=== PATIENT | male | born 1975 | race American Indian/Alaskan Native ===

== ENCOUNTER 2016-12-07 22:44 | Emergency (ER) | payer MEDICAID ==
[2016-12-07 23:00] VITALS: BMI 29.2
[2016-12-07 23:10] VITALS: BP 95/59; PULSE 99; RESP 18; TEMP 98.4; O2SAT 95
--- NOTE | 2016-12-08 00:25 | ED PDOC ---
Arrival/HPI - General Chief Complaint: Finger,Hand,&Wrist Time Seen by Provider: 12/08/16 00:17 Historian: Patient - History of Present Illness Narrative History of Present Illness (Text): 12/08/16 00:25 Nicholas Rojas is a 41 year old male, whose past medical history includes ESRD with hemodialysis and diabetes, who presents to the emergency department complaining of hx. intermittent pain to bilateral hands with swelling. Patient states he is unsure if he is allergic to anything.States he has had similar episodes in the past treated with steroids. The patient denies any chest pain, shortness of breath, back pain, neck pain, headache, dizziness, or any other complaints. Time/Duration: < month (3 weeks) Symptom Onset: Gradual Symptom Course: Intermittent, Other (Chronic) Activities at Onset: Rest, Light Context: Home Past Medical History - Provider Review Nursing Documentation Reviewed: Yes - Infectious Disease Hx of Infectious Diseases: None - Cardiac Hx Cardiac Disorders: No - Pulmonary Hx Respiratory Disorders: No - Neurological Hx Neurological Disorder: No - HEENT Hx HEENT Disorder: No - Renal Hx Dialysis: Yes (3 x weekly) Type of Dialysis Access: R chest permacath Date of Last Dialysis Treatment: 12/05/16 - Endocrine/Metabolic Hx Diabetes Mellitus Type 2: Yes - Hematological/Oncological Hx Blood Transfusions: Yes - Integumentary Hx Dermatological Disorder: Yes - Musculoskeletal/Rheumatological Other/Comment: L BKA - Gastrointestinal Hx Gastrointestinal Disorders: No - Genitourinary/Gynecological Other/Comment: does not make urine anymore - Psychiatric Hx Psychophysiologic Disorder: No Hx Substance Use: No - Surgical History Other/Comment: L LADYA. R chest permacath - Anesthesia Hx Anesthesia: Yes Hx Anesthesia Reactions: No Hx Malignant Hyperthermia: No Family/Social History - Physician Review Nursing Documentation Reviewed: Yes Family/Social History: No Known Family HX Smoking Status: Heavy Smoker > 10 Cigarettes Daily Hx Alcohol Use: Yes Frequency of alcohol use: Socially Hx Substance Use: No Allergies/Home Meds Allergies/Adverse Reactions: Allergies FISH Allergy (Verified 11/23/16 20:32) RASH Home Medications: Home Meds Medication Instructions Recorded Confirmed Calcium Acetate [Phoslo] 667 mg PO TID 02/28/16 11/23/16 Oxycodone HCl/Acetaminophen 1 each PO DAILY PRN 02/28/16 11/18/16 [Percocet 10-325 mg Tablet] Cinacalcet [Sensipar] 1 tab PO DAILY 12/07/16 12/07/16 Clopidogrel [Plavix] 1 tab PO DAILY 12/07/16 12/07/16 Oxycodone HCl/Acetaminophen 1 tab PO QID PRN 12/07/16 12/07/16 [Percocet 10-325 mg Tablet] Sevelamer [Renagel] 4 tab PO TID 12/07/16 12/07/16 Review of Systems - Physician Review All systems were reviewed & negative as marked: Yes - Review of Systems Constitutional: Normal. absent: Fevers Eyes: Normal ENT: Normal Respiratory: Normal. absent: SOB, Cough Cardiovascular: Normal. absent: Chest Pain Gastrointestinal: Normal. absent: Abdominal Pain, Diarrhea, Nausea, Vomiting Genitourinary Male: Normal. absent: Dysuria, Frequency, Hematuria, Urinary Output Changes Musculoskeletal: Other (+bilateral hand pain). absent: Back Pain, Neck Pain Skin: Normal. absent: Rash Neurological: Normal. absent: Headache, Dizziness Endocrine: Normal Hemo/Lymphatic: Normal Psychiatric: Normal Physical Exam Vital Signs Reviewed: Yes Vital Signs Temp Pulse Resp BP Pulse Ox 12/07/16 23:09 98.4 F 99 H 18 95/59 L 95 Temperature: Afebrile Blood Pressure: Normal Pulse: Regular Respiratory Rate: Normal Appearance: Positive for: Well-Appearing, Non-Toxic, Comfortable Pain Distress: None Mental Status: Positive for: Alert and Oriented X 3 - Systems Exam Head: Present: Atraumatic, Normocephalic Pupils: Present: PERRL Extroacular Muscles: Present: EOMI Conjunctiva: Present: Normal Mouth: Present: Moist Mucous Membranes Neck: Present: Normal Range of Motion Respiratory/Chest: Present: Clear to Auscultation, Good Air Exchange. No: Respiratory Distress, Accessory Muscle Use Cardiovascular: Present: Regular Rate and Rhythm, Normal S1, S2. No: Murmurs Upper Extremity: Present: Normal Inspection, Normal ROM, NORMAL PULSES, Neurovascularly Intact, Capillary Refill < 2s, Other (discomfort with bilateral hand flexion/extension). No: Cyanosis, Edema, Erythema, Temperature Abnormalties, Deformity Neurological: Present: GCS=15, CN II-XII Intact, Speech Normal Psychiatric: Present: Alert, Oriented x 3, Normal Insight, Normal Concentration Medical Decision Making ED Course and Treatment: 12/08/16 00:25 Impression: 41 year old male complaining of intermittent bilateral hand pain with possible swelling. Differential Diagnosis included but are not limited to: Plan: -- XR Left Hand -- XR Right Hand -- Benadryl -- Prednisone -- Percocet -- Reassess and disposition Progress Notes: 12/08/16 01:27 Reviewed radiology, XR Left Hand shows no acute process.Soft tissue calcifications XR Right Hand shows no acute process.Soft tissue calcifications - RAD Interpretation Radiology Orders: 12/08/16 00:24 HAND LEFT 3 VIEWS ROUTINE [RAD] Stat HAND RIGHT 3 VIEWS [RAD] Stat - Medication Orders Current Medication Orders: Discontinued Medications Diphenhydramine HCl (Benadryl) 25 mg PO ONCE STA Stop: 12/08/16 00:28 Last Admin: 12/08/16 00:45 Dose: 25 mg Oxycodone/Acetaminophen (Percocet 5/325 Mg Tab) 1 tab PO STAT STA Stop: 12/08/16 00:28 Last Admin: 12/08/16 00:45 Dose: 1 tab Prednisone (Prednisone Tab) 60 mg PO ONCE STA Stop: 12/08/16 00:28 Last Admin: 12/08/16 00:45 Dose: 60 mg - Scribe Statement The provider has reviewed the documentation as recorded by the Sandy Tesfaye Provider Attestation: All medical record entries made by the Sandy were at my direction and personally dictated by me. I have reviewed the chart and agree that the record accurately reflects my personal performance of the history, physical exam, medical decision making, and the department course for this patient. I have also personally directed, reviewed, and agree with the discharge instructions and disposition. Disposition/Present on Arrival - Present on Arrival Any Indicators Present on Arrival: No History of DVT/PE: No History of Uncontrolled Diabetes: No Urinary Catheter: No History of Decub. Ulcer: No History Surgical Site Infection Following: None - Disposition Have Diagnosis and Disposition been Completed?: Yes Diagnosis: Allergic reaction, Arthralgia of both hands Disposition: HOME/ ROUTINE Disposition Time: 01:36 Patient Plan: Discharge Condition: STABLE Additional Instructions: Take meds as prescribed/follow up with your doctor this week Prescriptions: DiphenhydrAMINE [Benadryl] 50 mg PO Q6 PRN #16 cap PRN Reason: Swelling predniSONE [Prednisone] 40 mg PO DAILY #10 tab Tramadol HCl [Ultram] 50 mg PO Q6 PRN #12 tab PRN Reason: Pain, Moderate (4-7) Referrals: Nehemiah Elliott DO [[facility]] - Follow up with primary
[2016-12-08] MEDS ORDERED: Oxycodone/Acetaminophen 5/325 mg Tab PO STA (00:27)
--- NOTE | 2016-12-08 07:49 | RAD ---
PROCEDURE: Left Hand Radiographs. HISTORY: pain COMPARISON: None. FINDINGS: BONES: No evidence of acute pathology in the osseous fracture. JOINTS: Mild arthritic changes. SOFT TISSUES: Foci of soft tissue densities are seen of uncertain etiology may represent tendon or soft tissue calcification. OTHER FINDINGS: None. IMPRESSION: Foci of soft tissue density seen of uncertain etiology.
--- NOTE | 2016-12-08 07:51 | RAD ---
PROCEDURE: Right Hand Radiographs. HISTORY: pain COMPARISON: None. FINDINGS: BONES: No evidence of acute pathology. JOINTS: Mild arthritic changes. SOFT TISSUES: Foci of soft tissue calcifications seen specially at the index finger OTHER FINDINGS: None. IMPRESSION: Foci of soft tissue density noted of uncertain etiology differential diagnosis include vascular calcification versus less likely other soft tissue calcification.
== END 2016-12-08 01:47 | disposition home or self-care (01) ==
LOC: ED 22:44 → MERGE 22:44 → ED 12-08 01:47
DX: T78.49XA Other allergy, initial encounter (principal); X58.XXXA Exposure to other specified factors, initial encounter; M25.542 Pain in joints of left hand; M25.541 Pain in joints of right hand